=== PATIENT | female | born 1955 | race Caucasian/White ===

== ENCOUNTER → 2016-10-08 | Outpatient (CLI) | payer BC ==
[~2016-10-08] MED LIST: ALEN70TA7 PO; ATOR10TA20 PO; CALC1TAB3 PO; ETHI1TAB PO; FISH1CAP28 PO; GLUC1CAP64 PO; MAGN400T26 PO; MULT-806 PO
== END ==
LOC: IMA 09:50
PROVIDERS: ATTEND Internal Medicine
DX: M85.80 Other specified disorders of bone density and structure, unspecified site (principal)